=== PATIENT | male | born 1955 ===

== ENCOUNTER 2017-06-04 17:03 | Observation (INO) | payer OTHER, SELFPAY ==
--- NOTE | 2017-06-04 17:59 | ED PDOC ---
HPI: Abdomen Time Seen by Provider: 06/04/17 17:39 Chief Complaint (Nursing): Abdominal Pain Chief Complaint (Provider): Abdominal Pain History Per: Patient History/Exam Limitations: no limitations Onset/Duration Of Symptoms: Days (3x weeks) Current Symptoms Are (Timing): Still Present Severity: Moderate Associated Symptoms: Nausea. denies: Vomiting, Diarrhea Additional Complaint(s): 62 year old male with a pertinent medical history of hypertension presents to the ED with complaints of umbilical pain for 3x weeks. He reports having associated nausea, but denies having vomiting and diarrhea. Patient was referred to ED from his [facility] for an incarcerated umbilical hernia. PMD: Not provided. Past Medical History Reviewed: Historical Data, Nursing Documentation, Vital Signs Vital Signs: Last Vital Signs Temp 97.9 F 06/04/17 17:34 Pulse 65 06/04/17 17:34 Resp 18 06/04/17 17:34 BP 178/76 H 06/04/17 17:34 Pulse Ox 98 06/04/17 18:06 - Medical History PMH: Asthma, HTN - Family History Family History: States: CAD, Hypertension - Allergies Allergies/Adverse Reactions: Allergies Allergy/AdvReac Type Severity Reaction Status Date / Time No Known Allergies Allergy Verified 06/04/17 17:34 Review of Systems ROS Statement: Except As Marked, All Systems Reviewed And Found Negative Gastrointestinal: Positive for: Nausea, Abdominal Pain. Negative for: Vomiting , Diarrhea Physical Exam - Reviewed Nursing Documentation Reviewed: Yes Vital Signs Reviewed: Yes - Physical Exam Appears: Positive for: Well, Non-toxic, No Acute Distress Head Exam: Positive for: ATRAUMATIC, NORMOCEPHALIC Skin: Positive for: Normal Color, Warm, Dry Cardiovascular/Chest: Positive for: Regular Rate, Rhythm Respiratory: Positive for: Normal Breath Sounds, Respiratory Distress Gastrointestinal/Abdominal: Positive for: Bowel Sounds (present), Soft, Hernia ( non reducable small umbilical hernia.). Negative for: Tenderness Neurologic/Psych: Positive for: Alert, Oriented (3x) - Laboratory Results Result Diagrams: 06/04/17 17:59 06/04/17 17:59 - ECG O2 Sat by Pulse Oximetry: 98 (RA) Pulse Ox Interpretation: Normal Medical Decision Making Medical Decision Makin:39 Initial impression: 62 year old male with an umbilical hernia. Initial plan: * CT abdomen and pelvis with IV contrast only * CBC * CMP * reevaluation Scribe Attestation: Documented by Johanny Humphrey, acting as a scribe for Tomas Poe MD. Provider Scribe Attestation: All medical record entries made by the Scribe were at my direction and personally dictated by me. I have reviewed the chart and agree that the record accurately reflects my personal performance of the history, physical exam, medical decision making, and the department course for this patient. I have also personally directed, reviewed, and agree with the discharge instructions and disposition. Disposition - Clinical Impression Clinical Impression: Umbilical hernia, incarcerated - Patient ED Disposition Is Patient to be Admitted: Yes - Disposition Disposition Time: 19:09 Condition: FAIR - Pt Status Changed To: Hospital Disposition Of: Observation - POA Present On Arrival: None
[2017-06-04 18:11] LABS: ALB/GLOB RATIO 1.3 (1.0-2.1); ALKALINE PHOSPHATASE 60 U/L (38-126); ALT/SGPT 38 U/L (21-72); AST/SGOT 26 U/L (17-59); BILIRUBIN,TOTAL 0.6 mg/dl (0.2-1.3); BLOOD UREA NITROGEN 15 mg/dl (9-20); CARBON DIOXIDE 29 mmol/L (22-30); CHLORIDE 106 mmol/L (98-107); GFR AFRICAN-AMERICAN > 60; GLUCOSE,RANDOM 89 mg/dL (75-110); POTASSIUM 4.3 MMOL/L (3.6-5.0); SODIUM 144 mmol/l (132-148); TOTAL PROTEIN 8.1 G/DL (6.3-8.2)
[2017-06-04 18:20] LABS: BASO % 0.7 % (0.0-2.0); EOS # 0.3 K/uL (0.0-0.7); EOS % 6.8 % (0.0-4.0); HEMATOCRIT 39.8 % (35.0-51.0); LYMPH # 1.9 K/uL (1.0-4.3); LYMPH % 39.6 % (20.0-40.0); MEAN CELL VOLUME 100.4 fl (80.0-94.0); MEAN CORPUSCULAR HEMOGLOBIN 33.8 pg (27.0-31.0); MEAN CORPUSCULAR HGB CONC 33.7 g/dL (33.0-37.0); MEAN PLATELET VOLUME 7.8 fl (7.2-11.7); MONO # 0.4 K/uL (0.0-0.8); MONO % 9.4 % (0.0-10.0); NEUT # 2.1 K/uL (1.8-7.0); NEUT % 43.5 % (50.0-75.0); NRBC % 0.1 % (0.0-0.0); RED CELL DISTRIBUTION WIDTH 12.9 % (11.5-14.5); WHITE BLOOD COUNT 4.7 K/uL (4.8-10.8)
[2017-06-04] MEDS ORDERED: Sodium Chloride 0.9% 50 ML IV ONE (18:26)
[2017-06-04] MEDS ORDERED: Iohexol 300 100 ML IJ ONE (18:26)
--- NOTE | 2017-06-04 19:18 | ED PDOC ---
- Laboratory Results Result Diagrams: 06/04/17 17:59 06/04/17 17:59 - ECG O2 Sat by Pulse Oximetry: 98 (RA) Medical Decision Making Medical Decision Makin:00 Patient is signed out to me by Tomas Poe MD pending CT scan, reevaluation , and final disposition. Scribe Attestation: Documented by Johanny Humphrey, acting as a scribe for Bernardo Carmona MD. Provider Scribe Attestation: All medical record entries made by the Scribe were at my direction and personally dictated by me. I have reviewed the chart and agree that the record accurately reflects my personal performance of the history, physical exam, medical decision making, and the department course for this patient. I have also personally directed, reviewed, and agree with the discharge instructions and disposition. Disposition - Clinical Impression Clinical Impression: Umbilical hernia, incarcerated - Disposition Condition: FAIR
--- NOTE | 2017-06-04 19:24 | CP.PCM.CON ---
History of Present Illness - History of Present Illness History of Present Illness: 62 y.o. male comes to the hospital c/o pain to the umbilicus. Patient states that he had an umbilical hernia for the last 2 years but over the course of the last 4 days patient states that he started to experience significant pain to the site of the hernia. Denies any fever or chills, no nausea, no vomiting, passing flatus and having normal bowel movements. Denies any urinary symptoms. No other complains at present time. Review of Systems - Constitutional Constitutional: As Per HPI - EENT Eyes: Other (unremarkable) Ears: Other (unremarkable) Nose/Mouth/Throat: Other (unremarkable) - Cardiovascular Cardiovascular: Other (unremarkable) - Respiratory Respiratory: Other (unremarkable) - Gastrointestinal Gastrointestinal: As Per HPI - Genitourinary Genitourinary: As Per HPI - Reproductive: Male Reproductive:Male: Other (unremarkable) - Musculoskeletal Musculoskeletal: Other (unremarkable) - Integumentary Integumentary: Other (unremarkable) - Neurological Neurological: Other (unremarkable) - Psychiatric Psychiatric: Other (unremarkable) - Endocrine Endocrine: Other (unremarkable) - Hematologic/Lymphatic Hematologic: Other (unremarkable) Past Patient History - Past Social History Smoking Status: Never Smoked - CARDIAC Hx Hypertension: Yes - PULMONARY Hx Asthma: Yes - NEUROLOGICAL Hx Neurological Disorder: No - HEENT Hx HEENT Problems: No - RENAL Hx Chronic Kidney Disease: No - ENDOCRINE/METABOLIC Hx Endocrine Disorders: No - HEMATOLOGICAL/ONCOLOGICAL Hx Blood Disorders: No - PSYCHIATRIC Hx Psychophysiologic Disorder: No Hx Substance Use: No - SURGICAL HISTORY Hx Surgeries: No - ANESTHESIA Hx Anesthesia: No Meds Allergies/Adverse Reactions: Allergies Allergy/AdvReac Type Severity Reaction Status Date / Time No Known Allergies Allergy Verified 06/04/17 17:34 Physical Exam - Constitutional Appears: Well, Non-toxic - Head Exam Head Exam: ATRAUMATIC, NORMAL INSPECTION, NORMOCEPHALIC - Eye Exam Eye Exam: EOMI, Normal appearance, PERRL Pupil Exam: NORMAL ACCOMODATION, PERRL - ENT Exam ENT Exam: Mucous Membranes Moist, Normal Exam - Neck Exam Neck exam: Positive for: Full Rom, Normal Inspection - Respiratory Exam Respiratory Exam: Clear to Auscultation Bilateral, NORMAL BREATHING PATTERN - Cardiovascular Exam Cardiovascular Exam: REGULAR RHYTHM, +S1, +S2 - GI/Abdominal Exam GI & Abdominal Exam: Normal Bowel Sounds, Soft Additional comments: Tender to palpation at the umbilicus, ND, no rebound, no guarding, incarcerated umbilical hernia, no skin changes - Rectal Exam Rectal Exam: Deferred - Extremities Exam Extremities exam: Positive for: full ROM, normal inspection - Back Exam Back exam: NORMAL INSPECTION - Neurological Exam Neurological exam: Alert, CN II-XII Intact, Oriented x3 - Psychiatric Exam Psychiatric exam: Normal Affect, Normal Mood - Skin Skin Exam: Dry, Intact, Normal Color, Warm Results - Vital Signs Recent Vital Signs: Last Vital Signs Temp 97.9 F 06/04/17 17:34 Pulse 65 06/04/17 17:34 Resp 18 06/04/17 17:34 BP 178/76 H 06/04/17 17:34 Pulse Ox 98 06/04/17 19:18 - Labs Result Diagrams: 06/04/17 17:59 06/04/17 17:59 - Imaging and Cardiology CT scan - abdomen Status: Image reviewed by me Assessment & Plan - Assessment and Plan (Free Text) Assessment: 62 y.o. male with incarcerated umbilical hernia with fat Plan: - Keep NPO - IV fluids - Pain control - To OR in am for umbilical hernia repair - Will follow
--- NOTE | 2017-06-04 19:40 | CT ---
EXAM: CT Abdomen and Pelvis With Intravenous Contrast CLINICAL HISTORY: 62 years old, male; Pain; Abdominal pain; Periumbilical; Additional info: Incarcerateed umbilical hernia. Sent phy. Doc. With request TECHNIQUE: Axial computed tomography images of the abdomen and pelvis with intravenous contrast. This CT exam was performed using one or more of the following dose reduction techniques: automated exposure control, adjustment of the mA and/or kV according to patient size, and/or use of iterative reconstruction technique. Coronal and sagittal reformatted images were created and reviewed. CONTRAST: 95 mL of [id number] administered intravenously. EXAM DATE/TIME: 06/04/2017 5:46 PM COMPARISON: No relevant prior studies available. FINDINGS: LIMITATIONS: Mild streak/motion artifact. LOWER THORAX: Small hiatal hernia. Linear/bandlike scarring or atelectasis in the right lung base ABDOMEN: LIVER: Fatty infiltration of the liver. GALLBLADDER AND BILE DUCTS: No CT evidence of acute cholecystitis. No evidence of significant biliary ductal dilatation. PANCREAS: No CT evidence of acute pancreatitis. SPLEEN: No acute abnormality of the spleen identified. ADRENALS: No acute abnormality of the adrenal glands identified. KIDNEYS AND URETERS: Incidental fluid density bilateral renal lesions, one in each kidney, both measuring less than 10 mm. No further followup imaging is recommended for incidental lesions of this size, unless otherwise clinically indicated. No acute abnormality of the kidneys identified. STOMACH AND BOWEL: Retained stool noted throughout the right hemicolon. Otherwise, no significant abnormality of the bowel is identified. No evidence of bowel obstruction, diverticulitis, or pancolitis and. APPENDIX: Appendix is seen, and is within normal limits in appearance. PELVIS: BLADDER: No acute abnormality of the bladder identified. REPRODUCTIVE: Prostate gland is mildly enlarged. ABDOMEN and PELVIS: INTRAPERITONEAL SPACE: No evidence of free intraperitoneal air or fluid. BONES/JOINTS: No acute fractures or other acute bony abnormality noted. SOFT TISSUES: Small 3.5 x 2.5 cm umbilical hernia, containing only fat and vessels. No evidence of bowel herniation. VASCULATURE: No evidence of abdominal aortic aneurysm or dissection. LYMPH NODES: No evidence of diffuse lymphadenopathy. IMPRESSION: - No evidence of significant acute process. - Small umbilical hernia, containing fat and vessels. No bowel herniation. No CT evidence of hernia incarceration, however, note that clinical exam is more sensitive for signs of hernia incarceration compared with CT. - See above for remaining findings.
--- NOTE | 2017-06-04 20:15 | CP.PCM.HP ---
History of Present Illness - History of Present Illness History of Present Illness: 62 yo M w PMHx of HTN is admitted for c/o of periumbilical pain that has been worsening for previous couple of weeks. The pain is sharp, burning, intermittent , located directly over the umbilicus, and is currently 8/10 but can worsen to 10/10. He was sent to [facility] ER from the [facility] for his umbilical pain. He states feeling nauseous, but denies fevers/chills, vomiting, diarrhea, diaphoresis, dysuria, hematuria, hematochezia, or melena. The patient first noticed a hernia < 1 year ago, but it only became painful within previous couple of weeks. Otherwise, he denies chest pain, palpitations, SOB, dyspnea, cough, or recent weight loss. PMD: [facility] PMHx: HTN PSHx: None NKDA Home Meds: does not know medication, no record in eCW FHx: HTN SHx: smokes cigarettes < 1 ppd, denies etoh or illicit drugs ED Course: -CBC -CMP -CT A/P -Surgical Consult Present on Admission - Present on Admission Any Indicators Present on Admission: No History of DVT/PE: No History of Uncontrolled Diabetes: No Urinary Catheter: No Decubitus Ulcer Present: No Review of Systems - Review of Systems All systems: reviewed and no additional remarkable complaints except (see HPI) Past Patient History - Past Social History Smoking Status: Never Smoked - CARDIAC Hx Hypertension: Yes - PULMONARY Hx Asthma: Yes - NEUROLOGICAL Hx Neurological Disorder: No - HEENT Hx HEENT Problems: No - RENAL Hx Chronic Kidney Disease: No - ENDOCRINE/METABOLIC Hx Endocrine Disorders: No - HEMATOLOGICAL/ONCOLOGICAL Hx Blood Disorders: No - PSYCHIATRIC Hx Psychophysiologic Disorder: No Hx Substance Use: No - SURGICAL HISTORY Hx Surgeries: No - ANESTHESIA Hx Anesthesia: No Meds Allergies/Adverse Reactions: Allergies Allergy/AdvReac Type Severity Reaction Status Date / Time No Known Allergies Allergy Verified 06/04/17 17:34 Physical Exam - Constitutional Appears: Non-toxic - Head Exam Head Exam: ATRAUMATIC, NORMOCEPHALIC - Eye Exam Eye Exam: EOMI Pupil Exam: PERRL - ENT Exam ENT Exam: Mucous Membranes Moist - Neck Exam Neck exam: Positive for: Full Rom - Respiratory Exam Respiratory Exam: Clear to Auscultation Bilateral, NORMAL BREATHING PATTERN. absent: Wheezes - Cardiovascular Exam Cardiovascular Exam: REGULAR RHYTHM, +S1, +S2 - GI/Abdominal Exam GI & Abdominal Exam: Distended, Guarding (umbilicus), Normal Bowel Sounds, Tenderness (umbilicus, mild RUQ, RLQ). absent: Rebound Additional comments: small, nonreducible, umbilical hernia - Extremities Exam Extremities exam: Negative for: calf tenderness, pedal edema - Neurological Exam Neurological exam: Alert, Oriented x3 - Psychiatric Exam Psychiatric exam: Normal Affect, Normal Mood - Skin Skin Exam: Dry, Intact, Warm Results - Vital Signs Recent Vital Signs: Last Vital Signs Temp 97.9 F 06/04/17 17:34 Pulse 65 06/04/17 17:34 Resp 18 06/04/17 17:34 BP 178/76 H 06/04/17 17:34 Pulse Ox 98 06/04/17 19:10 - Labs Result Diagrams: 06/04/17 17:59 06/04/17 17:59 Labs: Laboratory Results - last 24 hr 06/04/17 19:10 PT 11.8 INR 1.0 Assessment & Plan - Assessment and Plan (Free Text) Plan: 62 yo M w PMHx of HTN is admitted for c/o of periumbilical pain that has been worsening for previous couple of weeks 1) Umbilical Hernia -Intermittent, sharp pain that worsens to 8-10 / 10 -Abd CT: Small umbilical hernia, containing fat and vessels. No bowel herniation. No CT evidence of hernia incarceration, however, note that clinical exam is mroe sensitive for signs of hernia incarceration compared w CT. -Surgery Onboard -Pt will be taken to OR tomorrow morning -NPO -NS 126mL/hr -Famotidine 20mg IVP Q12H until next meal -Morphine 2mg IVP Q6H PRN -Morphine 4mg IVP Q6H PRN -f/u Surgical Outcomes in AM -f/u CBC in AM -f/u BMP in AM 2) HTN -Does not remember his HTN medication, not documented in previous chart or eCW -Norvasc 5mg ONCE -f/u BPs 3) DVT Prophylaxis -SCDs for now
[2017-06-04] MEDS ORDERED: Morphine 4 MG/ML VIAL IVP PRN ×2 (21:52→21:58)
[2017-06-04] MEDS: Sodium Chloride 0.9% 1,000 ML IV SCH (22:52)
[2017-06-05] MEDS: Sodium Chloride 0.9% 1,000 ML IV SCH ×2 (06:21→07:30)
[2017-06-05 08:19] LABS: HEMATOCRIT 37.2 % (35.0-51.0); MEAN CELL VOLUME 99.9 fl (80.0-94.0); MEAN CORPUSCULAR HEMOGLOBIN 33.8 pg (27.0-31.0); MEAN CORPUSCULAR HGB CONC 33.9 g/dL (33.0-37.0); RED CELL DISTRIBUTION WIDTH 12.6 % (11.5-14.5); WHITE BLOOD COUNT 4.5 K/uL (4.8-10.8)
[2017-06-05 08:31] LABS: BLOOD UREA NITROGEN 13 mg/dl (9-20); CALCIUM 8.4 mg/dL (8.4-10.2); CARBON DIOXIDE 26 mmol/L (22-30); CHLORIDE 108 mmol/L (98-107); GFR AFRICAN-AMERICAN > 60; GLUCOSE,RANDOM 97 mg/dL (75-110); POTASSIUM 3.9 MMOL/L (3.6-5.0); SODIUM 142 mmol/l (132-148)
--- NOTE | 2017-06-05 10:05 | CP.PCM.PN ---
Subjective - Date & Time of Evaluation Date of Evaluation: 06/05/17 Time of Evaluation: 08:30 - Subjective Subjective: Patient seen and examined at bedside with family present. He is laying upright in bed and reports intermittent abdominal pain at umbilical hernia site overnight. He has had a BM overnight which was non-bloody and he denies any fevers, chills, chest pain, sob or nausea. Patient has been NPO since midnight for planned surgical intervention today. Objective - Vital Signs/Intake and Output Vital Signs (last 24 hours): Temp Pulse Resp BP Pulse Ox 98.5 F 61 20 156/83 H 97 06/05/17 07:25 06/05/17 07:25 06/05/17 07:25 06/05/17 07:25 06/05/17 07:25 - Medications Medications: Current Medications Famotidine (Pepcid) 20 mg IVP Q12 [facility] Last Admin: 06/05/17 10:01 Dose: 20 mg Sodium Chloride (Sodium Chloride 0.9%) 1,000 mls @ 126 mls/hr IV .Q7H57M [facility] Stop: 06/05/17 14:07 Last Admin: 06/05/17 07:30 Dose: 126 mls/hr Morphine Sulfate (Morphine) 4 mg IVP Q6 PRN PRN Reason: Pain, moderate (4-7) Morphine Sulfate (Morphine) 2 mg IVP Q6 PRN PRN Reason: Pain, Mild (1-3) - Labs Labs: 06/05/17 06:00 06/05/17 06:00 PT 11.8 Seconds (9.8-13.1) 06/04/17 19:10 INR 1.0 (0.9-1.2) 06/04/17 19:10 APTT 33.9 Seconds (25.6-37.1) 06/05/17 06:00 - Constitutional Appears: Non-toxic, No Acute Distress - Head Exam Head Exam: ATRAUMATIC, NORMAL INSPECTION, NORMOCEPHALIC - Eye Exam Eye Exam: EOMI, PERRL - ENT Exam ENT Exam: Mucous Membranes Moist - Respiratory Exam Respiratory Exam: Clear to Ausculation Bilateral, NORMAL BREATHING PATTERN. absent: Rales, Rhonchi, Wheezes, Respiratory Distress - Cardiovascular Exam Cardiovascular Exam: REGULAR RHYTHM, RRR, +S1, +S2. absent: Murmur - GI/Abdominal Exam GI & Abdominal Exam: Soft, Hernia, Normal Bowel Sounds. absent: Distended, Rebound Additional comments: Tender, non-reducible umbilical hernia present. - Extremities Exam Extremities Exam: Normal Capillary Refill. absent: Calf Tenderness, Pedal Edema - Neurological Exam Neurological Exam: Alert, Awake, Oriented x3 - Psychiatric Exam Psychiatric exam: Normal Affect, Normal Mood - Skin Skin Exam: Dry, Warm Assessment and Plan - Assessment and Plan (Free Text) Assessment: 62 y/o M with PMH of HTN presented to ED with 7-8 month history of painful periumbilical mass which had worsened over the last 2 weeks. Patient was admitted with an incarcerated umbilical hernia. Plan: Incarcerated Umbilical Hernia -Hernia has been present for 7-8 months but has been increasing in size -Associated with increasing pain in the last 2 weeks which had become 8-10/10 intensity -CT Abdomen revealed an umbilical hernia containing fat and vessels. -Surgery consult appreciated, with plan for surgical intervention today -Has been NPO overnight -Continue IVF -Famotidine 20mg IV Q12H -Morphine 2mg IV Q6H PRN for mod pain, 4mg IV Q6H PRN for severe pain -Will follow up surgery recommendations Hypertension, uncontrolled -Patient had taken anti-hypertensives in the past but does not recall which -BP likely exacerbated by acute pain -Norvasc 5mg PO started -Will continue to monitor BP DVT Prophylaxis -SCDs for now
[2017-06-05] MEDS ORDERED: Bupivacaine 0.5% Inj(30mL) ONE (10:33)
[2017-06-05] MEDS ORDERED: Propofol 10 mg/ml Inj (20 ML) ONE (10:38)
[2017-06-05] MEDS ORDERED: Rocuronium 10 mg/ml (5 ml) ONE (10:39)
[2017-06-05] MEDS ORDERED: Neostigmine Methylsulfate 2 MG/2 ML ML IV ONE (10:39)
[2017-06-05] MEDS ORDERED: Lidocaine Hydrochloride 5 ML INJ ONE (10:39)
[2017-06-05] MEDS ORDERED: Succinylcholine 200 mg/10 ml Inj IV ONE (10:39)
[2017-06-05] MEDS ORDERED: Lidocaine 4% (Laryng-O-Jet) Kit MM ONE (10:39)
[2017-06-05] MEDS ORDERED: Midazolam 2 MG/2 ML VIAL ONE (10:39)
[2017-06-05] MEDS ORDERED: Lactated Ringer's 1,000 ML IV ONE (11:20)
[2017-06-05] MEDS ORDERED: Bupivacaine 0.5% 50 ML IJ ONE ×2 (12:05→12:31)
[2017-06-05] MEDS: HYDROmorphone 0.5 mg/0.5 ml ISec IVP PRN ×2 (12:24→12:55)
[2017-06-05] MEDS ORDERED: Lactated Ringer's 1,000 ML IV SCH ×2 (12:49→13:04)
[2017-06-05] MEDS ORDERED: Oxycodone/Acetaminophen 5/325 mg Tab PO PRN ×2 (13:04→13:12)
--- NOTE | 2017-06-05 13:04 | PCM.SURG1 ---
Surgeon's Initial Post Op Note - Surgeon's Notes Surgeon: Robert Penology Teacher: Barbara Type of Anesthesia: General Endo Anesthesia Administered By: General Pre-Operative Diagnosis: Incarcerated Umbilical hernia Operative Findings: Incarcerated umbilical hernia Post-Operative Diagnosis: Same Operation Performed: Laparoscopic Umbilical hernia repair Specimen/Specimens Removed: Incarcerated fat Estimated Blood Loss: EBL {In ML}: 5 Blood Products Given: N/A Drains Used: No Drains Post-Op Condition: Good Date of Surgery/Procedure: 06/05/17 Time of Surgery/Procedure: 11:45
[2017-06-05 14:04] VITALS: RESP 18
--- NOTE | 2017-06-05 16:39 | RAD ---
PROCEDURE: CHEST RADIOGRAPH, 1 VIEW HISTORY: pre-op COMPARISON: Comparison chest dated 04/08/2015 FINDINGS: LUNGS: Minor bibasilar atelectasis PLEURA: No pneumothorax or pleural fluid seen. CARDIOVASCULAR: Heart size is upper limits of normal/ borderline enlarged OSSEOUS STRUCTURES: No significant abnormalities. VISUALIZED UPPER ABDOMEN: Normal. OTHER FINDINGS: None. IMPRESSION: Minor bibasilar atelectasis.
[2017-06-05 16:43] VITALS: BP 152/78; PULSE 86; TEMP 98.5; O2SAT 93
--- NOTE | 2017-07-01 15:24 | OP ---
PREOPERATIVE DIAGNOSIS: Incarcerated umbilical hernia. POSTOPERATIVE DIAGNOSIS: Incarcerated umbilical hernia. PROCEDURE: Laparoscopic umbilical hernia repair. SURGEON: Bharathi Jones MD MEDICAL AUTHORIZATION SPECIALIST: Dr. Buckley. ANESTHESIA: General, endotracheal intubation. IV FLUIDS: Crystalloids. ESTIMATED BLOOD LOSS: 5 mL. INTRAOPERATIVE FINDINGS: Incarcerated umbilical hernia. SPECIMEN: Incarcerated fat. BRIEF HISTORY: The patient is a very pleasant 62-year-old gentleman who initially presented to the clinic at [facility] and was sent to the emergency room for incarcerated umbilical hernia. Upon further investigation, the patient was found to have incarcerated fat and umbilical hernia. All the risks and benefits of the procedure were explained to the patient and with the patient having a full understanding of all the risks and benefits involved informed consent was obtained and the patient was taken to the operating room for above stated procedure. PROCEDURE: The patient was brought into the operating room and placed supine on operating table. Bilateral Flowtron boots were applied to the patient's lower extremities. After successful induction of anesthesia and successful endotracheal intubation by the anesthesia team, the patient's abdomen was prepped with ChloraPrep, second draped under standard surgical fashion. Prior to the beginning of the procedure, the patient received prophylactic Ancef antibiotics. Time-out was called in the room when everyone in the room were in agreement. Using 11 blade scalpel knife approximately 1 cm incision was made in the left upper quadrant of the patient's abdomen right top of the costal margin. Subsequent to that using 11 mm Optiview Visiport, the patient's abdomen was entered under direct visualization, and subsequent to that pneumoperitoneum was achieved with good opening pressure. Once this was accomplished, 5 mm 0 degree scope was introduced into the patient's abdomen and abdomen was inspected. We immediately were able to visualize incarcerated umbilical hernia that appeared to have incarcerated properitoneal fat. At that point in time, attention was turned to the left lower quadrant of the patient's abdomen using an 11 blade scalpel knife approximately 5 mm incision was made in the transverse fashion. Subsequent to that 5 mm trochar was introduced into the patient's abdomen. At that point in time using [place] dissector attached to the cautery device, the peritoneum was incised around umbilical area and incarcerated properitoneal fat was reduced back into the abdominal cavity and subsequent to that was dissected and removed from patient's abdomen and passed off to the Mays stent as specimen. At that point in time, I made a decision to use 9 cm Symbotex dual-sided composite mesh. Mesh was marked in a non-sticky side and one stay suture was place right in the middle of the mesh. At that point in the time the mesh was moisted and introduced into the patient's abdomen. Using prior placed stay suture was grabbed and mesh was brought to up to that her abdominal wall. At that point in time, using secure strap device mesh was secured in place circumferentially and once the position of the mesh was satisfactory the patient's abdomen was fully disinflated. Trochars were removed from the patient's abdomen and the skin was closed with 4-0 Monocryl suture in a running subcuticular fashion. At the end of the procedure, incision sites were infiltrated with Marcaine anesthetic. The patient's abdomen was washed and dried and Dermabond was applied to the incision sites. 4 x 4 and medium size Tegaderm were applied to the umbilicus as a pressure dressing. The patient was successfully extubated by the anesthesia team, transferred to the stretcher and taken to the recovery room in stable condition. At the end of the procedure, all instrument counts, needles, and sponges were correct. Bharathi Jones MD
--- NOTE | 2017-07-05 16:34 | PCM.OP ---
Operative Report - Operative Report Date of Surgery/Procedure: 06/05/17 Surgeon: Robert Pharmacy Intake Technician: Ina Anesthesia/Sedation: General Endotracheal intubation, IV fluids are crystalloid. Pre-Operative Diagnosis: Incarcerated umbilical hernia. Post-Operative Diagnosis: Incarcerated umbilical hernia. Indication for Surgery: Mr. Tc Cox is a very pleasant 62 year old gentleman who had the umbilical hernia for approximately two years. However, during the course of the last four days, he said that the hernia popped out more and he has been experiencing a lot of pain. Patient underwent CT scan of the abdomen and pelvis, showing the incarcerated fat in the umbilical hernia. All the risks and benefits of the procedure were explained to the patient. The patient had a full understanding of all the risks and benefits involved. Informed consent was obtained. Then patient was taken to operating room for above stated procedure. Operative Findings: Incarcerated umbilical hernia with preperitoneal fat. Procedure/Operation Description: 1. Laparoscopic repair of incarcerated umbilical hernia. Patient was brought into operating room and placed supine on operating table. Bilateral __ boots were applied on patients lower extremities. After successful induction anesthesia and successful endotracheal intubation by the anesthesia team, patients abdomen was prepped with chloraprep stick and draped in the standard surgical fashion. Prior to beginning of procedure, patient received prophylactic 2 grams of ___ antibiotics and timeout was called in the room and with everyone in the room being in agreement. Using an 11 blade scalpel length approximately 1 cm incision was made right on top of the left costal margin in the left upper quadrant of the patients abdomen. Subsequent to that, we used an 11 mm optiview visiport. Patientss abdomen was entered under the right visualization and pneumoperitoneum was achieved with good___. Once this was accomplished, 5mm 0 degree scope was introduced into the patients abdomen and abdomen was inspected. I immediately was able to visualize incarcerated preperitoneal fat in the umbilical hernia. Then attention was turned to the left mid-abdomen of the patient using an 11 blade scalpel knife approximately 5 mm incision was made on the left side of the patients abdomen in a transverse fashion. Subsequent to that, a 5 mm trocar was introduced to the patients abdomen. At that point in time, using the grasper, the incarcerated fat and umbilical hernia was reduced back into abdominal cavity. Subsequent to that, using ____ dissector attached the the cautery device the peritoneum was incised right around the area of incarcerated fat and the fat was completely dissected off and transected and removed from patient passed off the to the ___ as the specimen. At that point in time, the falciform ligament was taken with the ___ dissector attached to the cautery device. The hernia defect measured approximately 1.5-2 cm so I made a decision to use a 12 cm [place] ___ dual sided composite mesh. The mesh was marked on the non-sticky side with a marking pen. Subsequent to that, the ___ suture of 3-0 prolene was placed in the middle of the mesh. At that point in time, the mesh was __ introduced into the patient s abdomen. Once this was accomplished using suture retrieval device, the ___ suture was grasped with the suture retriever and the mesh was brought up to the anterior abdominal wall. At that point in time, once the position of the mesh was satisfactory, it was secured in place circumferentially with a secure-strap device. At that point in time, once the mesh was completely secured circumferentially, patients abdomen was fully disflated. Trocars were removed from the patients abdomen. The string of 3-0 prolene was cut and removed from patient. Skin was closed with 4-0 monocryl suture in the ___ subcuticular fashion. At the end of the procedure, incision sites were infiltrated with Marcaine anesthetic. Patients abdomen was washed and dried. Dermabond was applied to incision sites. A cotton ball and medium-sized __ were placed to patients umbilicus as a pressure dressing. Patient was successfully extubated by the anesthesia team, transferred to the stretcher, and taken to the recovery room in stable condition. At the end of the procedure, all instrument counts, needles, and sponges were correct. Estimated Blood Loss: 5mL Specimen: Incarcerated preperitoneal fat.
== END 2017-06-05 18:30 | disposition home or self-care (01) ==
LOC: H.ER 17:03 → H.ERHOLD 19:08 → H.MEDSURG1 20:35
PROVIDERS: ADMIT Family Medicine Geriatric Medicine; ATTEND Family Medicine Geriatric Medicine
DX: K42.0 Umbilical hernia with obstruction, without gangrene (principal); F17.210 Nicotine dependence, cigarettes, uncomplicated; J45.909 Unspecified asthma, uncomplicated; I10 Essential (primary) hypertension